=== PATIENT | male | born 1955 | race Hispanic/Latino ===

== ENCOUNTER 2019-01-29 08:23 | Day surgery (SDC) | payer OTHER ==
[~2019-01-29] VITALS: Ht 180.3 cm; Wt 95.3 kg
[2019-01-29] VITALS (7 sets, daily range): BP systolic 138–183; BP diastolic 63–94
[2019-01-29] MEDS ORDERED: SODIUM CHLORIDE 0.9% 1000ML 1,000 ML IV ONE (10:02)
[2019-01-29] MEDS ORDERED: FISH1CAP27 PO (10:08)
[2019-01-29] MEDS ORDERED: INSU100C14 SQ (10:08)
[2019-01-29] MEDS ORDERED: FURO20TA4 PO (10:08)
[2019-01-29] MEDS ORDERED: LOSA50TA64 PO (10:08)
[2019-01-29] MEDS ORDERED: OMEP40CA13 PO (10:08)
[2019-01-29] MEDS ORDERED: BUDE10.2 IH (10:08)
[2019-01-29] MEDS ORDERED: METO25TA6 PO (10:08)
[2019-01-29] MEDS ORDERED: INSU100V IV (10:08)
[2019-01-29] MEDS ORDERED: FAMO20TA8 PO (10:08)
[2019-01-29] MEDS ORDERED: FLUTICASONE NASAL (10:08)
[2019-01-29] MEDS ORDERED: DOXA4TAB3 PO (10:08)
[2019-01-29] MEDS ORDERED: ROSU5TAB12 PO (10:08)
[2019-01-29] MEDS ORDERED: PREG50CA63 PO (10:08)
[2019-01-29] MEDS ORDERED: LINA72CA PO (10:08)
[2019-01-29] MEDS ORDERED: PROPOFOL 10 MG/ML 20ML VIAL IV ONE (10:32)
== END 2019-01-29 11:00 | disposition home or self-care (01) ==
LOC: DAH 08:23 → ENDO 08:23
PROVIDERS: ATTEND Internal Medicine
DX: K21.0 Gastro-esophageal reflux disease with esophagitis (principal); K29.50 Unspecified chronic gastritis without bleeding; K44.9 Diaphragmatic hernia without obstruction or gangrene; G47.33 Obstructive sleep apnea (adult) (pediatric); I12.9 Hypertensive chronic kidney disease with stage 1 through stage 4 chronic kidney disease, or unspecified chronic kidney disease; E11.22 Type 2 diabetes mellitus with diabetic chronic kidney disease; N18.4 Chronic kidney disease, stage 4 (severe); M19.90 Unspecified osteoarthritis, unspecified site; Z79.899 Other long term (current) drug therapy; Z79.4 Long term (current) use of insulin; Z87.891 Personal history of nicotine dependence; Z80.0 Family history of malignant neoplasm of digestive organs
CPT/HCPCS: 43239; 82948; 88305; A4215; A4221; A4222; A4606; A4615; A4663; J2704; J7030